=== PATIENT | male | born 1970 | race Caucasian/White ===

== ENCOUNTER 2020-07-29 18:25 | Outpatient (CLI) | payer OTHER ==
--- NOTE | 2020-07-29 20:43 | Ultrasound Report ---
PROCEDURE: Retroperitoneal INDICATIONS: Right flank pain TECHNIQUE: Real-time scanning was performed of the retroperitoneal organs, with image documentation. COMPARISON: None. FINDINGS: There appears to be a duplicated collecting system on the left in addition to 2 left ureteral inserti ons. No shadowing calculus or hydronephrosis. Normal size and appearance of both kidneys otherwise. N o urinary bladder wall thickening. IMPRESSION: No shadowing calculus or hydronephrosis. 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 Reviewed by: Jay Thomason MD on 07/29/2020 8:42 PM PDT Approved by: Jay Thomason MD on 07/29/2020 8:42 PM PDT Station ID: [id number]
== END 2020-07-29 18:26 | disposition home or self-care (01) ==
LOC: DI 18:25
PROVIDERS: ATTEND Physician Assistant Medical
DX: R10.9 Unspecified abdominal pain (principal)

== ENCOUNTER 2021-02-25 08:19 | Emergency (ER) | payer OTHER ==
[2021-02-25] MEDS ORDERED: CHERRY SYRUP 10 ML UDC PO ONE (09:02)
[2021-02-25] MEDS ORDERED: DEXAMETHASONE 10 MG/ML VIAL PO STA (09:02)
--- NOTE | 2021-02-25 09:04 | ED Physician Documentation ---
PD HPI URI - Stated complaint Stated Complaint: COUGH, SORE THROAT, FEVER - Chief complaint Chief Complaint: Resp - History obtained from History obtained from: Patient - Additional information Additional information: Patient reports cough, congestion, fever and sore throat ongoing since Friday. Multiple family members with similar symptoms. Reports fever 1-1.2 this morning. Treated with Tylenol prior to arrival. Reports has been treating his symptoms with Tylenol as well as with tea with honey at home. No Covid vaccinations. No influenza shot this year.Past medical significant for hypertlopez owusu for which he takes hydrochlorothiazide and losartan.Denies chest pain, shortness of breath, abdominal pain, vomiting, diarrhea, constipation, new rash, new weakness/numbness/tingling in any extremity. Review of Systems Ten Systems: 10 systems reviewed and negative Constitutional: reports: Fever, Chills Eyes: denies: Loss of vision Nose: reports: Congestion Cardiac: denies: Chest pain / pressure Respiratory: reports: Cough. denies: Dyspnea, Hemoptysis GI: denies: Abdominal Pain, Vomiting, Diarrhea Skin: denies: Rash Neurologic: denies: Generalized weakness PD PAST MEDICAL HISTORY - Past Medical History Cardiovascular: Hypertension - Present Medications Home Medications: Ambulatory Orders Medication Instructions Recorded Confirmed Benzonatate [Tessalon] 200 mg PO TID PRN #30 cap 02/25/21 Codeine Phosphate/Guaifenesin 5 ml PO Q6HR PRN #120 ml 02/25/21 [Guaifen-Codeine 100-10 mg/5 ml] Ibuprofen [Motrin] 800 mg PO Q8H PRN #30 tablet 02/25/21 Ondansetron Odt [Zofran] 4 mg TL Q6H PRN #10 tablet 02/25/21 - Allergies Allergies/Adverse Reactions: Allergies Allergy/AdvReac Type Severity Reaction Status Date / Time No Known Drug Allergies Allergy Verified 02/25/21 08:39 PD ED PE NORMAL - Vitals Vital signs reviewed: Yes (wnl) - General General: Alert and oriented X 3 - HEENT HEENT: Atraumatic, PERRL, Moist mucous membranes, Other (Mild erythema without exudates in the posterior oropharynx. No uvular deviation, sublingual elevation, normal tracheal mobility.) - Neck Neck: Supple, no meningeal sign, No JVD - Cardiac Cardiac: RRR - Respiratory Respiratory: No respiratory distress, Clear bilaterally - Abdomen Abdomen: Normal bowel sounds, Soft - Male Male : Deferred - Rectal Rectal: Deferred - Derm Derm: Normal color - Extremities Extremities: No deformity Results - Vitals Vitals: Vital Signs - 24 hr 02/25/21 08:26 Temperature 36.5 C Heart Rate 95 Respiratory 18 Rate Blood Pressure 164/101 H O2 Saturation 94 Oxygen O2 Source Room air - Labs Labs: Laboratory Tests 02/25/21 09:19 Influenza A (Rapid) Negative Influenza B (Rapid) Negative PD MEDICAL DECISION MAKING - ED course Complexity details: reviewed old records, reviewed results, re-evaluated patient, d/w patient ED course: Patient is 50-year-old male with past medical significant for essential hypertension who presents to the emergency department with 2-3 days of upper respiratory tract style symptoms. Multiple family members also reportedly sick at home. Patient afebrile, hemodynamically stable on arrival to the emergency department. Physical exam otherwise reassuring. Clear aeration in all lung hobbs with no indications of respiratory distress. Did have some mild posterior pharynx erythema without exudates. Did order for influenza swabs which were negative. Additionally ordered for Covid send out which is pending at this time. Patient was given dose Decadron in the emergency department. Given his age and presentation minimal risk for strep pharyngitis and no screeni ng was performed in the emergency department today. There were no other indications of deep space neck infection on physical exam. I will discharge with some medications for symptomatic management. Encourage careful follow-up with primary care or return to the emergency department for new or worsening symptoms. Departure - Departure Disposition: 01 Home, Self Care Clinical Impression: Upper respiratory tract infection Condition: Stable Record reviewed to determine appropriate education?: Yes Instructions: ED Viral Syndrome Follow-Up: Pretty Gould PA-C [Primary Care Provider] - Prescriptions: Codeine Phosphate/Guaifenesin [Guaifen-Codeine 100-10 mg/5 ml] 5 ml PO Q6HR PRN #120 ml PRN Reason: Cough Ibuprofen [Motrin] 800 mg PO Q8H PRN #30 tablet PRN Reason: PAIN &/OR FEVER Benzonatate [Tessalon] 200 mg PO TID PRN #30 cap PRN Reason: Cough Ondansetron Odt [Zofran] 4 mg TL Q6H PRN #10 tablet PRN Reason: Nausea / Vomiting
--- NOTE | 2021-02-25 09:34 | XRAY Report ---
PROCEDURE: Chest 1 View X-Ray INDICATIONS: chest pain TECHNIQUE: One view of the chest was acquired. COMPARISON: None FINDINGS: Surgical changes and devices: None. Lungs and pleura: No pleural effusions or pneumothorax. Linear densities at the left lung base likel y representing atelectasis. No focal consolidation. Mediastinum: Mediastinal contours appear normal. Heart size is normal. Bones and chest wall: No suspicious bony lesions. Overlying soft tissues appear unremarkable. IMPRESSION: Left basilar atelectasis without other evidence to suggest an acute cardiopulmonary abnormality. Reviewed by: Fabiano Lozada DO on 02/25/2021 8:32 AM IMANI Approved by: Fabiano Lozada DO on 02/25/2021 8:32 AM IMANI Station ID: [id number]
[2021-02-25 10:44] VITALS: BP 113/69
== END 2021-02-25 10:56 | disposition home or self-care (01) ==
LOC: ED 08:19
DX: U07.1 COVID-19 (principal)
CPT/HCPCS: 71045; 87275; 87276; 87635; 99284; A9270

== ENCOUNTER 2021-03-03 09:49 | Outpatient (CLI) | payer OTHER ==
--- NOTE | 2021-03-03 11:30 | XRAY Report ---
PROCEDURE: Chest 2 View X-Ray INDICATIONS: COUGH TECHNIQUE: 2 view(s) of the chest. COMPARISON: 02/25/2021 FINDINGS: Surgical changes and devices: None. Lungs and pleura: An incomplete inspiratory result is noted, with low lung volumes and crowding of t he vascular markings. No focal infiltrates are seen. No large pneumothorax or large pleural effusion can be seen. Mediastinum: Mediastinal contours are normal. Heart size is normal. Bones and chest wall: No suspicious bony abnormalities. Soft tissues appear unremarkable. IMPRESSION: Low lung volumes, without an acute plain film abnormality seen. Reviewed by: Agustín Self MD on 03/03/2021 10:29 AM IMANI Approved by: Agustín Self MD on 03/03/2021 10:29 AM IMANI Station ID: [id number]
== END 2021-03-03 23:59 ==
LOC: DI.N 09:49
PROVIDERS: ATTEND Family Medicine
DX: R05.9 Cough, unspecified (principal)

== ENCOUNTER 2021-09-14 13:57 | Outpatient (CLI) | payer OTHER ==
--- NOTE | 2021-09-14 14:52 | SLEEP CARE CONSULTATION ---
Information from patient questionnaire entered by Tan Dunaway MA. I have reviewed and concur with the information entered by Tan Dunaway MA. This document represents the service I personally performed and the decisions made by me, Kira Lopez ARNP. History of Present Illness Service Date and Time: 09/14/2021 1357 Reason for Visit: New patient ([place] 05/2018, [employer] [facility], ) Chief Complaint: reports: Unrefreshed sleep, Snoring, Frequent awakenings at night Date of Onset: 10 YEARS Usual bedtime: WOR[employer]IF[employer] 8 PM - 0100 Time it takes to fall asleep: 20-30 minutes Snores at night: Yes Observed to quit breathing while asleep: No Sleeps alone due to snoring: No Number of times waking at night: 1-2 Reasons for waking at night: reports: Pain, Bathroom, Other (noise) Toss, Turn, or Twitch while sleeping: Yes ( says he "flop"s around a lot) Recalls having dreams: No Usually gets out of bed at: 0345 -0830 Feels refreshed in the morning: Yes (SOMETIMES) Morning headache: Yes (SOMETIMES; 2 times a month, resolves in several hours) Sleepy or fatigued during the day: Yes Ever fallen asleep while driving: No Takes day naps: No Prior sleep studies: Yes Year and Where: [place] about 8 yrs ago Type of Sleep Study: Home sleep study Additional HPI information: I had the pleasure of seeing NINFA HAN today regarding the possibility of him having a sleep disorder. His current complaints are frequent night awakenings, fatigue, snoring and unrefreshed sleep. He states that he just does not sleep well just from waking up so much and feeling tired after sleeping. He will wake up after his shower and do okay during the day. He goes to sleep in 20-30 minutes and then will wake up a few times a night. He can sometimes not return to sleep for almost an hour. He had a home sleep study about 8 years ago when he was in [place] but it was negative for MARGUERITE at that time. He does have a brother who is on a machine for sleep apnea and his brother has Down's Syndrome. - Parasomnia Symptoms Ever been unable to move upon waking from sleep: No Walks in sleep: No Talks in sleep: No Ever acted out dreams in sleep: No Ever felt weak in the knees when startled or emotional: No Bothered by creepy, crawly, restless sensations in legs: Yes (has arthritis in knees; aching in knees will encourage moving) Problems with memory or concentration: No Subjective Initial [place] Sleepiness Scale score: 9 (2021) Past Medical History Past Medical History: reports: Hypertension, Arthritis (bilateral knees), Other (Bulging discs in back; right shoulder surgery for labrum and rotator cuff repair, 6 yrs ago) Social History 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 Patient is Single and lives in . Have you smoked in the past 12 months: No Alcohol use: Yes Alcohol amount and frequency: 2 X WEEKLY Caffeine use: Yes Caffeine amount and frequency: 1-2 X DAILY Family History Family history of sleep disordered breathing: Yes Family Hx Sleep Apnea: Sibling: Sleep apnea - Treated (brother with Down's Syndrome) Allergies and Home Medications Drug allergies reviewed: Yes (NKDA) Home medication list reviewed: Yes Allergy and home medication list: Allergies No Known Drug Allergies Allergy (Verified 02/25/21 08:39) Medication: Losartan 100 mg daily Rosuvastatin 40 mg daily HCTZ 25 mg daily Amlodipine 5 mg daily Fish oil Vitamin D Review of Systems Cardiovascular: reports: high blood pressure Gastrointestinal: reports: heartburn (occasional) Neurological: denies: headaches, head trauma Psychiatric: denies: anxiety, depression, mood disorder Ear/Nose/Throat: reports: nasal congestion, sinus problems. denies: tonsillectomy Musculoskeletal: reports: joint pain, back pain, joint swelling, muscle pain or cramping Physical Exam Vital signs obtained and entered by: Razia DUNAWAY CMA [facility] Blood Pressure: 123/76 (RIGHT, PULSE 77, RESP 16, ) Cuff size: wrist Heart Rate: 58 O2 Saturation: 96 (PAPER MASK) Height: 5 ft 10 in Weight: 245 lb (CLOTHES) Body Mass Index: 35.2 BMI Classification: Obese Neck circumference: 17.5 (INCHES) Mouth and throat: narrow oropharynx Soft palate: long Hard palate: normal Uvula: normal, long Uvula visualization: 50% Mallampati Class II Tongue: enlarged in size with teeth carter on lateral edges Tonsils: 2+ Neck: normal w/o lymphadenopathy or thyromegaly Heart: regular rate and rhythm Lungs: clear bilaterally Impression and Plan 1. Suspected Obstructive Sleep Apnea-Hypopnea Syndrome, as suggested by a history of loud and irregular snoring, frequent awakening during the night and unrefreshed sleep. He has a history of hypertension. I recommend proceeding to polysomnography to confirm the diagnosis and to assess severity. If the patient has significant sleep disordered breathing, a manual CPAP titration study will also be performed to find the optimal treatment pressure. I informed the patient of what the sleep studies involve and after some discussion, obtained agreement to proceed. The pathophysiology of obstructive sleep apnea-hypopnea syndrome was discussed with the patient and health risks of cardiovascular and cerebrovascular disease if not treated. Risks of drowsy driving discussed in detail and patient advised to avoid long distance driving and to pulley maintainer at the first sign of drowsiness. Patient agreed to plan. * Schedule polysomnography * Avoid long distance driving or driving when feeling sleepy. * Avoid alcohol, sedative and muscle relaxant around bedtime. * Attempt to lose weight. * Review instructions provided by trained office staff on how to prepare for the sleep study. * Return for follow-up after sleep study completed. Counseling Topics: Weight loss health impact Visit Type: In Office Time Spent with Patient (minutes): 30 Provider Statement: I spent 100% of the Face to Face Visit with the patient with greater than 50% spent counseling the patient and coordination of care.
[2021-09-14 14:53] VITALS: BP 123/76
== END 2021-09-14 13:58 | disposition home or self-care (01) ==
LOC: SC 13:57
PROVIDERS: ATTEND Nurse Practitioner Family
DX: R06.83 Snoring (principal); G47.8 Other sleep disorders; I10 Essential (primary) hypertension; E66.9 Obesity, unspecified; Z68.35 Body mass index [BMI] 35.0-35.9, adult
CPT/HCPCS: 99203; 99212

== ENCOUNTER 2021-09-26 14:54 | Outpatient (CLI) | payer OTHER | END 2021-09-26 14:55 | disposition home or self-care (01) | LOC: SC 14:54 | PROVIDERS: ATTEND Nurse Practitioner Family | DX: G47.33 Obstructive sleep apnea (adult) (pediatric) (principal) | CPT/HCPCS: 95806 ==

== ENCOUNTER 2021-10-10 14:41 | Outpatient (CLI) | payer OTHER ==
--- NOTE | 2021-10-10 15:05 | SLEEP CARE CONSULTATION ---
Information from patient questionnaire entered by Tan Winters MA. I have reviewed and concur with the information entered by Tan Winters MA. This document represents the service I personally performed and the decisions made by , Kira Lopez ARNP. History of Present Illness Service Date and Time: 10/10/2021 1441 Initial [place] Sleepiness Scale score: 9 (2021) Current [place] Sleepiness Scale score: 8 (09/2021) Additional HPI information: NINFA HAN returns for follow up and results of the recently performed home sleep study. I explained the pathophysiology behind obstructive sleep apnea. We then spent quite a bit of time discussing different treatment options. For mild obstructive sleep apnea, surgery and oral appliance are alternatives to nasal CPAP therapy but in moderate or severe cases, nasal CPAP is the most effective and reliable treatment. Because apnea is primarily in supine position, then positional management therapy could be effective. Methods discussed such as positioning with pillows to prevent supine sleep. I reviewed the impact of weight changes on sleep apnea and strongly recommended losing weight. After some discussion, the patient opted to go with the nasal CPAP therapy. Nasal autoCPAP set at 4-15 cmH20 will be ordered with rationale explained. A manual titration study will be ordered if unable to find optimal pressure with office adjustments. I explained how CPAP machine works and what to expect when using the machine. Using CPAP every night in order to get used to it was emphasized. Patient advised to put CPAP mask on before getting into bed so as not to fall asleep without CPAP. To assist acclimation to CPAP use, it could also be used for a short time during day while reading or watching TV. The patient was instructed to call the CPAP supplier to discuss any mechanical problem that may occur. If the mask given is uncomfortable or is difficult to keep on through the night even with adjustment, contact the CPAP supplier as many will replace with another mask style if notified before 30 days. If snoring or perceives is not getting enough air or too much air from the machine, notify this office. Patient counseled not drink alcohol less than 4 hours before bedtime as it can increase snoring and apnea. Patient was cautioned about risks of drowsy driving until sleepiness symptoms resolve. Sleep Study - Results Type of Sleep Study: Home sleep study (F/U HOME STUDY, 09/26/2021 [facility] Prior sleep studies: Yes Year and Where: [place] about 8 yrs ago Polysomnography/Home Sleep Study results: Physician Impression: The quality of the study is good. The length of the study is adequate (> 240 minutes). Please also see the tabulated and graphic data. 1. Obstructive Sleep Apnea-Hypopnea (ICD-10 G47.33), mild, with an AHI of 11.6/hr and nolan SaO2 of 87%. During the study, the patient had 8 apneas (6 obstructive, 2 central, 0 mixed) and 55 hypopneas. The longest episode lasted 117.0 seconds. The patient did not sleep supine during this study (supine AHI was 0.0 and non-supine, 11.66). 2. Hypoxemia (ICD-10 R09.02), minimal, with the lowest oxygen saturation of 87 % and 1.3 minutes with SaO2 under 90%. Baseline oxygen saturation was normal (Average oxygen saturation was 94%). Allergies and Home Medications Known drug allergies: No Drug allergies reviewed: Yes Home medication list reviewed: Yes (no changes) Allergy and home medication list: Allergies No Known Drug Allergies Allergy (Verified 02/25/21 08:39) Review of Systems Review of systems same as previous: Yes (no changes) Physical Exam Vital signs obtained and entered by: HILDA RING Blood Pressure: 135/87 (pulse 75, resp 16, right,) Cuff size: wrist Heart Rate: 74 O2 Saturation: 96 (paper ask) Height: 5 ft 10 in Weight: 250 lb (clothes) Body Mass Index: 35.9 BMI Classification: Obese Impression and Plan 1. Obstructive Sleep Apnea-Hypopnea Syndrome, mild, with lowest oxygen saturation of 87%. Obviously this is the cause of the patients symptoms of unrefreshed sleep, and excessive daytime sleepiness. Positive pressure therapy could benefit his hypertension. As mentioned above, the patient will be started on nasal autoCPAP therapy with pressure set at 4-15 cmH2O. Compliance guidelines also reviewed. A copy of compliance guidelines will be given for reference at check out. Because the apnea is more severe supine, I instructed to avoid sleeping supine using pillow positioning until able to start CPAP use. * Nasal auto CPAP therapy, pressure at 4-15 cm H2O. * Attempt to lose weight. * Avoid alcohol consumption near bedtime. * Avoid supine sleep until using CPAP. * The patient is again cautioned about driving until sleepiness completely resolves. * Return one month after CPAP obtained. I will assess response to therapy and compliance at that time. Counseling Topics: Weight loss health impact Visit Type: In Office Time Spent with Patient (minutes): 20 Provider Statement: I spent 100% of the Face to Face Visit with the patient with greater than 50% spent counseling the patient and coordination of care.
[2021-10-10 15:06] VITALS: BP 135/87
== END 2021-10-10 14:42 | disposition home or self-care (01) ==
LOC: SC 14:41
PROVIDERS: ATTEND Nurse Practitioner Family
DX: G47.33 Obstructive sleep apnea (adult) (pediatric) (principal); E66.9 Obesity, unspecified; Z68.35 Body mass index [BMI] 35.0-35.9, adult
CPT/HCPCS: 99212; 99213

== ENCOUNTER 2021-10-23 08:00 | Outpatient (CLI) | payer OTHER ==
--- NOTE | 2021-10-23 17:34 | XRAY Report ---
PROCEDURE: Lumbar Spine 2 View INDICATIONS: STRAIN OF MUSCLE, FASCIA, AND TENDON OF LOWER BACK TECHNIQUE: 2 views of the lumbar spine were acquired. COMPARISON: None. FINDINGS: Bones: 5 [id number] vertebrae are present. There is normal bony alignment. No vertebral body compression fractures. No suspicious bony lesions. Moderate degenerative changes noted throughout th e lumbar spine. Mild L3-L4, L4-L5 and L5-S1 facet arthropathy. Soft tissues: Overlying bowel gas pattern is normal. No suspicious soft tissue calcifications. IMPRESSION: 1. Multilevel degenerative disc disease. 2. Multilevel facet arthropathy. 3. No fracture. No acute osseous lesion. If there is continued clinical concern for pathology, then M RI should be considered for further evaluation. Reviewed by: Lanette Roa MD, PhD on 10/23/2021 5:33 PM PDT Approved by: Lanette Roa MD, PhD on 10/23/2021 5:33 PM PDT Station ID: [id number]
== END 2021-10-23 23:59 | disposition home or self-care (01) ==
LOC: DI.N 08:00
PROVIDERS: ATTEND Physician Assistant
DX: S39.012A Strain of muscle, fascia and tendon of lower back, initial encounter (principal); M47.816 Spondylosis without myelopathy or radiculopathy, lumbar region